=== PATIENT | male | born 1975 | race Caucasian/White ===

== ENCOUNTER 2024-05-06 22:12 | Emergency (ER) | payer OTHER, SELFPAY ==
[2024-05-06 22:18] VITALS: BP 127/77; PULSE 67; RESP 18; TEMP 36.9; O2SAT 98
--- NOTE | 2024-05-06 22:47 | ED.GENADULT ---
HPI - General Adult General Chief complaint: Post Op Complication Stated complaint: Post-surgery - has gauze going down throat Time Seen by Provider: 05/06/24 22:22 History of Present Illness HPI narrative: This 48-year-old male had a septoplasty done yesterday and comes in today thinking that the gauze is coming down the backside of his nostrils into his throat and he is experiencing some gag symptoms. He states that the gauze is scheduled to be removed in 3 days with follow-up appointment. Related Data Home Medications ?Medication ?Instructions ?Recorded ?Confirmed ustekinumab 90 mg/mL subcutaneous mg subcut 05/20/23 05/20/23 syringe (Stelara) Previous Rx's ?Medication ?Instructions ?Recorded polymyxin B sulfate 10,000 1 drp ophthalmic (eye) Q3H #10 mL 05/20/23 unit-trimethoprim 1 mg/mL eye drops (Polytrim) Allergies Allergy/AdvReac Type Severity Reaction Status Date / Time No Known Drug Allergies Allergy Verified 05/20/23 17:51 Review of Systems Status of ROS: Reports: 10 or more systems reviewed and unremarkable except as noted in History and below Narrative: Constitutional: No fevers, no weight gain or loss. Eyes: No discharge. No vision changes. HENT: No congestion, no sore throat, no ear pain. Recent septoplasty with cause in place. Cardiovascular: No chest pain, no palpitations. Respiratory: No shortness of breath, no wheezes, no cough. Gastrointestinal: No abdominal pain, no vomiting, no diarrhea. Genitourinary: No dysuria, no hematuria. Musculoskeletal: Normal range of motion. Skin: No rashes, no pruritis. Neurological: No dizziness, weakness, sensory change, speech change. Endo/Heme/Allergies: No bruising or bleeding. No polydipsia. Pysch: no suicidality, no anxiety, no insomnia. All other systems reviewed and are negative. [facility] Medical History (Updated 05/06/24 @ 22:51 by Krishna Logan MD) Conjunctivitis ?H10.9 - Unspecified conjunctivitis (ICD-10) Exam Narrative: Exam Narrative: Constitutional: Well-developed, well-nourished, no acute distress. HEENT: Normocephalic, atraumatic. Oropharynx appears normal without any evidence of drainage or foreign object coming down in the posterior oropharynx. Neck: Normal range of motion. Nontender. Supple. Heart: Regular. No murmurs. Normal rate. Intact distal pulses. Lungs: Clear to auscultation. No chest discomfort. No wheezes, rhonchi, or rales. Abdomen: Normal bowel sounds. Nontender. No rebound tenderness. Genitalia: Deferred. Back: No midline tenderness. Normal range of motion. Extremities: Normal range of motion. No injury. Skin: Intact. No rash. Warm. No erythema or pallor. Neurologic: No altered sensation. No weakness. Alert and oriented. Psychiatric: No suicidality. No anxiety or depression. No insomnia. Nursing notes and vitals signs are reviewed. Const: Vital Signs, click to edit/add: Vital Signs - 24 hr 05/06/24 22:18 Temperature 98.5 F Pulse Rate [Pulse Oximeter] 67 Respiratory Rate 18 Blood Pressure [Ri ght Upper Arm] 127/77 Pulse Oximetry 98 Oxygen Delivery Me thod Room Air Course Vital Signs Vital signs: Initial Vital Signs Temperature 98.5 F 05/06/24 22:18 Temperature Source Temporal Artery Scan 05/06/24 22:18 Pulse Rate 67 05/06/24 22:18 Respiratory Rate 18 05/06/24 22:18 Blood Pressure 127/77 05/06/24 22:18 Blood Pressure Mean 93 05/06/24 22:18 Blood Pressure Position Sitting 05/06/24 22:18 Pulse Oximetry 98 05/06/24 22:18 Oxygen Delivery Method Room Air 05/06/24 22:18 Vital Signs Temperature 98.5 F 05/06/24 22:18 Pulse Rate 67 05/06/24 22:18 Respiratory Rate 18 05/06/24 22:18 Blood Pressure 127/77 05/06/24 22:18 Pulse Oximetry 98 05/06/24 22:18 Oxygen Delivery Method Room Air 05/06/24 22:18 Temperature 98.5 F 05/06/24 22:18 Pulse Rate 67 05/06/24 22:18 Respiratory Rate 18 05/06/24 22:18 Blood Pressure 127/77 05/06/24 22:18 Pulse Oximetry 98 05/06/24 22:18 Oxygen Delivery Method Room Air 05/06/24 22:18 Medical Decision Making MDM Narrative Medical decision making narrative: This patient had a septoplasty done in is reporting some gag symptoms because he feels the gauze is coming down the backside of his nostrils into his upper oropharynx behind the wheel a. On exam I was not able to see any sign of gauze. I stated that the gauze should not be removed at least by me as this would be interrupting a procedure that he just had done yesterday. There would be increased risk of bleeding. The patient is not showing any signs of vomiting or gagging despite the report that he is feeling these symptoms. He did receive a dose of a hurricane spray and this did bring relief to his symptoms although he understands that this is a temporary improvement. I did recommend using some [id number] anesthetic spray such as Chloraseptic for symptomatic relief. He is instructed to follow up with his your nose and throat specialist otherwise as needed. Discharge Plan Discharge Clinical Impression: Post-op pain Patient Disposition: Home, Self-Care Condition: Stable Additional Instructions: Follow-up with organizational research consultant for ongoing management as scheduled or sooner if needed. Return if worsening. Prescriptions: No Action Stelara 90 mg/mL syringe subcut polymyxin B sulf-trimethoprim [Polytrim] 10,000 unit- 1 mg/mL drops 1 drp ophthalmic (eye) Q3H Qty: 10 0RF Rx Instructions: while awake; do not exceed 6 doses in 24 hours Follow Up/Referrals: Provider,Not a Local [Primary Care Provider] - Stand Alone Forms: [employer] Info Instructions
[2024-05-06] MEDS: BENZOCAINE 20 % SPRAY 1 EACH PO (22:49)
== END 2024-05-06 22:56 | disposition home or self-care (01) ==
PROVIDERS: Emergency Provider Emergency Medicine Emergency Medical Services
DX: G89.18 Other acute postprocedural pain (principal)
CPT/HCPCS: 99283; 99284; A9270